=== PATIENT | male | born 1940 | race Caucasian/White ===

== ENCOUNTER 2018-01-11 10:01 | Emergency (ER) | payer MEDICARE, BC ==
[2018-01-11 10:10] VITALS: BP 137/67
--- NOTE | 2018-01-11 11:01 | RAD ---
HISTORY: pain of the left foot, great toe COMPARISONS: None VIEWS: 3, Frontal, lateral, and oblique views FINDINGS: BONE DENSITY: Normal. BONES: There is no displaced fracture. 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 ALIGNMENT: There is no dislocation. SOFT TISSUES: Unremarkable. OTHER FINDINGS: None. IMPRESSION: NO ACUTE OSSEOUS INJURY. IF SYMPTOMS PERSIST, RECOMMEND REPEAT IMAGING.
--- NOTE | 2018-01-11 11:11 | UC ---
Niko Hagan Julia, scribed for Lino Parsons MD on 01/11/18 at 1016 . Lower Extremity/Ankle HPI - HPI Summary HPI Summary: A 77 year old M presents to [facility] with a chief complaint of L great toe pain after kicking a bench today. Pain is 7/10, upon triage. - History of Current Complaint Chief Complaint: UCLowerExtremity Stated Complaint: TOE INJURY Time Seen by Provider: 01/11/18 10:13 Hx Obtained From: Patient Onset/Duration: Sudden Onset, Lasting Hours Pain Intensity: 7 Pain Scale Used: 0-10 Numeric Able to Bear Weight: Yes - Allergies/Home Medications Allergies/Adverse Reactions: Allergies Allergy/AdvReac Type Severity Reaction Status Date / Time Penicillins Allergy unk Verified 01/11/18 10:11 Home Medications: Home Medications Levothyroxine Sodium 75 mcg PO DAILY 01/11/18 [History Confirmed 01/11/18] PMH/Surg Hx/FS Hx/Imm Hx Cardiovascular History: Hypertension - Surgical History Surgical History: Yes Surgery Procedure, Year, and Place: [id number]. [id number]. 1998-STENT- [facility]. 2001-LEFT HIP REPLACEMENT- [facility]. 2008- BACK SURGERY- [facility] - Family History Known Family History: Positive: Hypertension - Social History Alcohol Use: Daily Substance Use Type: None Smoking Status (MU): Former Smoker Review of Systems Constitutional: Negative Musculoskeletal: Myalgia - L great toe pain All Other Systems Reviewed And Are Negative: Yes Physical Exam - Summary Physical Exam Summary: VITAL SIGNS: Reviewed. GENERAL: Patient is a well-developed and nourished male who is lying comfortable in the stretcher. Patient is not in any acute respiratory distress. HEAD AND FACE: Normocephalic EYES: PERRLA, EOMI x 2. EARS: Hearing grossly intact. MOUTH: Oropharynx within normal limits. NECK: Supple, trachea is midline, no adenopathy, no JVD, no carotid bruit. CHEST: Symmetric, no tenderness at palpation LUNGS: Clear to auscultation bilaterally. No wheezing or crackles. CVS: Regular rate and rhythm, S1 and S2 present, no murmurs or gallops appreciated. ABDOMEN: Soft, non-tender. Bowel sounds are normal. No abdominal abnormal pulsations. EXTREMITIES: Full ROM in all major joints, except L great toe. No cyanosis or clubbing. Swollen L great toe with decreased ROM NEURO: Alert and oriented x 3. No acute neurological deficits. Speech is normal and follows commands. SKIN: Dry and warm Triage Information Reviewed: Yes Vital Signs: Initial Vital Signs Temp 97.7 F 01/11/18 10:07 Pulse 64 01/11/18 10:07 Resp 16 01/11/18 10:07 BP 137/67 01/11/18 10:07 Pulse Ox 100 01/11/18 10:07 Vital Signs Reviewed: Yes Diagnostics - Radiology L FOOT XR Radiology Interpretation Completed By: Radiologist - NO ACUTE OSSEOUS INJURY. IF SYMPTOMS PERSIST, RECOMMEND REPEAT IMAGING. Dr. Parsons has reviewed this report. Lower Extremity Course/Dx - Course Course Of Treatment: X-ray impression: No fracture dislocation. Therefore believe that the patient has a this plan. The patient will take ibuprofen for pain. He will follow-up with PCP in the next couple days. - Differential Dx/Diagnosis Provider Diagnoses: Toe pain. musculoskeletal pain Discharge - Sign-Out/Discharge Documenting (check all that apply): Discharge/Admit/Transfer - Discharge Plan Condition: Stable Disposition: HOME Patient Education Materials: Musculoskeletal Pain (ED) Referrals: Nadine Mcdaniel MD [Primary Care Provider] - Additional Instructions: Take medications as instructed Increase your fluid intake Return to the if symptoms worsen - Billing Disposition and Condition Condition: STABLE Disposition: Home The documentation as recorded by the Niko peres Julia accurately reflects the service I personally performed and the decisions made by , Lino Parsons MD.
== END 2018-01-11 11:13 | disposition home or self-care (01) ==
LOC: UCEAST 10:01
DX: M79.675 Pain in left toe(s) (principal); I10 Essential (primary) hypertension; Z88.0 Allergy status to penicillin; Z87.891 Personal history of nicotine dependence
CPT/HCPCS: 99212; G0463

== ENCOUNTER 2018-04-07 10:22 | Emergency (ER) | payer MEDICARE, BC ==
--- NOTE | 2018-04-07 11:43 | ED ---
Lower Extremity - HPI Summary HPI Summary: The pt is a 78 y/o male presenting to the [facility] with a chief complaint of right LE pain. The pt states, as per triage report, that the pain radiates down the right hip/leg. The pt also reports swelling to the right calf as well as swelling on the left leg. The pt denies chest pain and SOB. The pt states that he has not been traveling. Pt denies SOB, N/V, fevers, rashes , sore throat, ear ache, bruises, chills, AARON, chest pain. Pt also reports hip pain that radiated down to the right leg since 4 days ago. The pt is unable to lay down on bed. The patient rates the pain 8/10 in severity. Symptoms aggravated by position. Symptoms alleviated by nothing. Full strength aspirin was taken. - History of Current Complaint Chief Complaint: EDExtremityLower Stated Complaint: LE Pain Hx Obtained From: Patient Onset of Pain: Immediate Onset/Duration: Days - since 04/03/18 Severity Initially: Severe Severity Currently: Severe Pain Intensity: 8 Pain Scale Used: 0-10 Numeric Timing: Constant Associated Signs And Symptoms: Positive: Swelling - both LE with more swelling to the right leg Aggravating Factor(s): Other - Position Alleviating Factor(s): Nothing - Allergies/Home Medications Allergies/Adverse Reactions: Allergies Allergy/AdvReac Type Severity Reaction Status Date / Time Penicillins Allergy Unknown Verified 04/07/18 10:28 Reaction Details PMH/Surg Hx/FS Hx/Imm Hx Cardiovascular History: Reports: Hx Angina - 1998- NOTHING SINCE, Hx Hypertension - ON MEDICATION FOR Musculoskeletal History: Reports: Hx Arthritis - KNUCKLES AND JOINT, Other Musculoskeletal History - HISTORY OF SPINAL STENOSIS- SURERY FOR IN 2008 Sensory History: Reports: Hx Contacts or Glasses - GLASSES Denies: Hx Hearing Aid Opthamlomology History: Reports: Hx Contacts or Glasses - GLASSES - Cancer History Cancer Type, 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 [id number]. 1998-STENT- [facility]. 2001-LEFT HIP REPLACEMENT- [facility]. 2008- BACK SURGERY- [facility] Hx Anesthesia Reactions: No Infectious Disease History: No Infectious Disease History: Denies: History Other Infectious Disease, Traveled Outside the [place] in Last 30 Days - Family History Known Family History: Positive: Hypertension Family History: Reviewed and noncontributory - Social History Alcohol Use: Daily Alcohol Amount: 2 beers Substance Use Type: Reports: None Smoking Status (MU): Former Smoker Review of Systems Negative: Fever, Chills Eyes: Negative Negative: Sore Throat, Ear Ache Negative: Chest Pain Negative: Shortness Of Breath Negative: Vomiting, Nausea Positive: no symptoms reported Musculoskeletal: Other - right LE pain and slightly less left LE pain Positive: Edema - Right LE and Left LE swelling Negative: Rash, Bruising Negative: Headache Psychological: Normal All Other Systems Reviewed And Are Negative: No Physical Exam - Summary Physical Exam Summary: Appearance: Alert, conversive, nontoxic appearing Skin: Warm, dry, no mottling, no rashes, no contusions HEENT: EOMI, PERRL, moist mucous membranes Neck: No masses on the neck, supple Respiratory: Clear to auscultation, breath sounds present, no rales, no rhonchi , no wheezes Cardiovascular: RRR, pulses are symmetrical in both lower and upper extremities Abdomen: Soft, non-tender Bowel Sounds: Present Musculoskeletal: No CVA tenderness, no obvious deformity, Calf minimal fullness to the distal aspect of the right leg Moderately tender to palpation to the right calf Neurological: A&Ox3, CN II-XII Intact, moving all extremities symmetrically Psychiatric: Normal affect and mood Triage Information Reviewed: Yes Vital Signs On Initial Exam: Initial Vitals Temp Pulse Resp BP Pulse Ox 97.4 F 66 18 155/78 98 04/07/18 10:24 04/07/18 10:24 04/07/18 10:24 04/07/18 10:24 04/07/18 10:24 Vital Signs Reviewed: Yes Diagnostics - Vital Signs Vital Signs Temp Pulse Resp BP Pulse Ox 04/07/18 10:24 97.4 F 66 18 155/78 98 - Laboratory Result Diagrams: 04/07/18 12:00 04/07/18 12:00 Lab Statement: Any lab studies that have been ordered have been reviewed, and results considered in the medical decision making process. - Ultrasound No standard instances Ultrasound Interpretation Completed By: Radiologist - US reveals NO RIGHT LOWER EXTREMITY DEEP VEIN THROMBOSIS as per radiologist. The ED Physician has reviewed the radiology report. Lower Extremity Course/Dx - Course Course Of Treatment: The pt is a 78 y.o male with a chief complaint of right lower extremity pain. The pt was received a Venous Dopplar study (US) in the [facility]. Upon evaluation of the radiology report, the pt will be discharged home with a dx of leg pain. He is recommended to have a follow up Venous dopplar study in order to reevaluate the right leg in one week as well as a follow up with his orthopedic surgeon. - Diagnoses Provider Diagnoses: Leg pain Discharge - Sign-Out/Discharge Documenting (check all that apply): Patient Departure - Discharge home - Discharge Plan Condition: Stable Disposition: HOME Patient Education Materials: Leg Pain (ED) Referrals: Nadine Mcdaniel MD [Primary Care Provider] - Additional Instructions: Follow up with your doctor. If you have persistent pain and/or swelling, please return or follow up with your doctor for a repeat ultrasound. Take tylenol for pain. - Attestation Statements Document Initiated by Scribe: Yes Documenting Scribe: Aramis Foreman Provider For Whom Scribe is Documenting (Include Credential): Dr. Babs Hairston Scribe Attestation: Aramis Hagan, scribed for Dr. Babs Hairston on 04/07/18 at 1316.
[2018-04-07 12:11] LABS: Hematocrit 44 % (42-52); Hemoglobin 14.5 g/dl (14.0-18.0); Mean Corpuscular HGB Conc 33 g/dl (31-36); Mean Corpuscular Hemoglobin 29 pg (27-31); Mean Corpuscular Volume 87 fL (80-94); Red Blood Count 5.09 10^6/ul (4.00-5.40); Red Cell Distribution Width 13 % (10.5-15); White Blood Count 7.7 10^3/ul (3.5-10.8)
[2018-04-07 12:25] LABS: EGFR Non-African American 65.3 (>60)
[2018-04-07 12:30] LABS: ABS Basophils 0 10^3/ul (0-0.2); ABS Eosinophils 0.2 10^3/ul (0-0.6); ABS Lymphocytes 1.3 10^3/ul (1.0-4.8); ABS Monocytes 0.5 10^3/ul (0-0.8); ABS Neutrophils 5.7 10^3/ul (1.5-7.7); ABS Nucleated RBC 0 10^3/ul; Lymphocyte % 16.4 % (25-47); Mean Platelet Volume 8.9 um3 (7.4-10.4); Nucleated Red Blood Cells % 0.2; Platelet Count 126 10^3/ul (150-450)
[2018-04-07 12:30] LABS: INR 0.92 (0.77-1.02)
--- NOTE | 2018-04-07 12:53 | RAD ---
HISTORY: pain, right calf COMPARISONS: None relevant TECHNIQUE: Multiple transverse and longitudinal ultrasound images were obtained of the right lower extremity from the level of the common femoral vein inferiorly through to the infrapopliteal veins using grayscale, color Doppler, and spectral Doppler imaging with and without compression and with augmentation. Comparison images were obtained of the contralateral common femoral vein. FINDINGS: VEINS: The venous system of the right lower extremity is compressible throughout its course, with normal flow on color Doppler imaging and normal response to augmentation on spectral Doppler imaging. SOFT TISSUES: Unremarkable. OTHER FINDINGS: None. IMPRESSION: NO RIGHT LOWER EXTREMITY DEEP VEIN THROMBOSIS
[2018-04-07 13:32] VITALS: BP 153/73
== END 2018-04-07 13:31 | disposition home or self-care (01) ==
LOC: ED 10:22
DX: M79.604 Pain in right leg (principal); Z87.891 Personal history of nicotine dependence; R60.0 Localized edema; Z88.0 Allergy status to penicillin
CPT/HCPCS: 36415; 80053; 85025; 85610; 85730; 99282

== ENCOUNTER 2019-04-28 10:31 | Emergency (ER) | payer BC, MEDICARE ==
[2019-04-28 10:56] VITALS: BP 137/68
--- NOTE | 2019-04-28 11:16 | UC ---
Upper Extremity HPI - HPI Summary HPI Summary: Patient is an 79-year-old male presenting with right elbow pain and redness 4 days. States he noticed it was worse this morning on the shower when he was unable to wash his hair without increasing pain. He notes sharp pain that is worse with flexion and extension at the elbow. The pain shoots down his arm with certain movements. Also notes swelling of the elbow. Patient denies injury or trauma to the elbow. He denies fever, chills, nausea, vomiting. He notes history of arthritis but says this is different. - History of Current Complaint Chief Complaint: UCUpperExtremity Stated Complaint: ELBOW PAIN AND SWELLING Hx Obtained From: Patient Severity Initially: Mild Severity Currently: Moderate Pain Intensity: 4 Pain Scale Used: 0-10 Numeric - Allergies/Home Medications Allergies/Adverse Reactions: Allergies Allergy/AdvReac Type Severity Reaction Status Date / Time Penicillins Allergy Unknown Verified 04/28/19 10:56 Reaction Details Home Medications: Home Medications Metoprolol Succinate XL TAB* [Toprol XL TAB*] 50 mg PO DAILY 04/28/19 [History Confirmed 04/28/19] Statin Medicat 04/28/19 [History] PMH/Surg Hx/FS Hx/Imm Hx Endocrine History: Thyroid Disease Cardiovascular History: Hypertension - Surgical History Surgical History: Yes Surgery Procedure, Year, and Place: [id number] right. 1998-ANGIOPLASTY- [facility]. 1998-STENT- [facility]. 2001-LEFT HIP REPLACEMENT- [facility]. 2008- BACK SURGERY- [facility] - Family History Known Family History: Positive: Hypertension Family History: Reviewed and noncontributory - Social History Alcohol Use: Daily Alcohol Amount: 2 beers Substance Use Type: None Smoking Status (MU): Former Smoker When Did the Patient Quit Smoking/Using Tobacco: 40 years ago Review of Systems All Other Systems Reviewed And Are Negative: Yes Constitutional: Positive: Negative. Negative: Fever, Chills Skin: Positive: Other - erythema of right elbow. Negative: Bruising ENT: Positive: Negative Respiratory: Positive: Negative. Negative: Shortness Of Breath, Cough Cardiovascular: Positive: Negative. Negative: Palpitations, Chest Pain Gastrointestinal: Positive: Negative. Negative: Abdominal Pain, Vomiting, Nausea Neurovascular: Negative: Decreased Sensation Musculoskeletal: Positive: Arthralgia, Decreased ROM, Edema. Negative: Myalgia Neurological: Negative: Weakness, Paresthesia, Numbness Physical Exam Triage Information Reviewed: Yes Appearance: Well-Appearing, No Pain Distress, Well-Nourished Vital Signs: Initial Vital Signs Temp 98 F 04/28/19 10:52 Pulse 67 04/28/19 10:52 Resp 16 04/28/19 10:52 BP 137/68 04/28/19 10:52 Pulse Ox 98 04/28/19 10:52 Vital Signs Reviewed: Yes Eyes: Positive: Conjunctiva Clear ENT: Positive: Hearing grossly normal Neck: Positive: Supple Respiratory Exam: Normal Respiratory: Positive: Lungs clear, Normal breath sounds, No respiratory distress Cardiovascular Exam: Normal Cardiovascular: Positive: RRR, Pulses Normal, Brisk Capillary Refill. Negative : Distal Pulses Weak, Distal Pulses Absent, Delayed Capillary Refill Musculoskeletal: Positive: Strength Intact, ROM Limited @ - elbow flexion and extension, Edema @ - right olecranon and posterior arm Neurological: Positive: Alert Psychological: Positive: Age Appropriate Behavior Skin: Positive: Other - erythema and warmth noted of right posterior elbow and arm Upper Extremity Course/Dx - Course Course Of Treatment: Discussed concern for cellulitis vs bursitis with the patient. I am treating for cellulitis with Keflex. Patient states he believes he has taken this before and tolerated it well. I stressed the importance of the patient going to the emergency room if he does not improve within 2 days. Also directed him to go if he experiences fever, chills, nausea, vomiting, or worsening symptoms at any point in time. Patient voiced understanding and agreed to treatment plan. Discussed patient with Dr. Parsons who agreed to the treatment plan. - Differential Dx/Diagnosis Provider Diagnosis: Cellulitis of right elbow Discharge ED - Sign-Out/Discharge Documenting (check all that apply): Patient Departure All imaging exams completed and their final reports reviewed: No Studies - Discharge Plan Condition: Stable Disposition: HOME Prescriptions: Cephalexin CAP* [Keflex CAP*] 500 mg PO TID #21 cap Patient Education Materials: Cellulitis (ED) Referrals: Nadine Mcdaniel MD [Primary Care Provider] - If Needed Additional Instructions: Take Keflex as prescribed for the treatment of your cellulitis. You may also take ibuprofen and/or tylenol as directed for pain relief. You may also apply warm compresses to the area twice daily to help relieve pain. GO TO THE EMERGENCY ROOM IF: - you do not have improvement within the next 2 days - you experience worsening redness, swelling, or pain - you experience drainage or bleeding from the area - you experience fever, chills, nausea, or vomiting - Billing Disposition and Condition Condition: STABLE Disposition: Home
== END 2019-04-28 11:51 | disposition home or self-care (01) ==
LOC: UCEAST 10:31
DX: L03.113 Cellulitis of right upper limb (principal); I10 Essential (primary) hypertension; Z87.891 Personal history of nicotine dependence; Z88.0 Allergy status to penicillin
CPT/HCPCS: 99212; G0463

== ENCOUNTER 2019-05-05 12:18 | Emergency (ER) | payer MEDICARE ==
[2019-05-05 13:07] VITALS: BP 136/62
--- NOTE | 2019-05-05 13:29 | UC ---
Skin Complaint HPI - HPI Summary HPI Summary: 79-year-old male presents with onset of right wrist pain last not that has progressively worsened. States this morning when he woke up he noted some redness and swelling to the ulnar wrist. Describes pain as a mild aching. Pain worsens with movement. He was evaluated for right elbow pain and redness 1 week ago and was treated for a possible cellulitis with a 7-day course of cephalexin which he took the last dose today. Denies fever, chills, injury, numbness, or tingling. - History of Current Complaint Chief Complaint: UCSkin Time Seen by Provider: 05/05/19 13:12 Stated Complaint: SWOLLEN HAND AND ELBOW Hx Obtained From: Patient Pain Intensity: 4 - Allergy/Home Medications Allergies/Adverse Reactions: Allergies Allergy/AdvReac Type Severity Reaction Status Date / Time Penicillins Allergy Unknown Verified 05/05/19 13:02 Reaction Details Home Medications: Home Medications Acetaminophen [Non-Aspirin Extra Strength] 1,000 mg PO ONCE PRN 05/05/19 [ History Confirmed 05/05/19] Atorvastatin* [Lipitor 10 MG*] 1 tab PO DAILY 05/05/19 [History Confirmed ] PMH/Surg Hx/FS Hx/Imm Hx Endocrine History: Thyroid Disease, Dyslipidemia Cardiovascular History: Cardiac Disease, Hypertension - Surgical History Surgical History: Yes Surgery Procedure, Year, and Place: [id number] right. 1998-ANGIOPLASTY- [facility]. 1998-STENT- [facility]. 2001-LEFT HIP REPLACEMENT- [facility]. 2008- BACK SURGERY- [facility] - Family History Known Family History: Positive: Hypertension - Social History Occupation: Retired Lives: With Family Alcohol Use: Daily Alcohol Amount: 2 beers Substance Use Type: None Smoking Status (MU): Former Smoker When Did the Patient Quit Smoking/Using Tobacco: 40 years ago Review of Systems All Other Systems Reviewed And Are Negative: Yes Constitutional: Negative: Fever, Chills Skin: Positive: Other - Erythema. Negative: Rash Respiratory: Positive: Negative Cardiovascular: Positive: Negative Gastrointestinal: Positive: Negative Genitourinary: Positive: Negative Motor: Negative: Weakness Neurovascular: Negative: Decreased Sensation Musculoskeletal: Positive: Arthralgia - See HPI Neurological: Positive: Negative Is Patient Immunocompromised?: No Physical Exam - Summary Physical Exam Summary: GENERAL APPEARANCE: Well developed, well nourished, alert and cooperative, and appears to be in no acute distress. CARDIAC: Normal S1 and S2. No S3, S4 or murmurs. Rhythm is regular. There is no peripheral edema, cyanosis or pallor. Extremities are warm and well perfused. Capillary refill is less than 2 seconds. Peripheral pulses intact. LUNGS: Clear to auscultation without rales, rhonchi, wheezing or diminished breath sounds. ABDOMEN: Positive bowel sounds. Soft, nondistended, nontender. No guarding or rebound. No masses or hepatosplenomegally. MUSKULOSKELETAL: Normal muscular development. Normal gait. EXTREMITIES: Area of non-tender erythema approximately 5 cm x 3 cm to the ulnar right wrist with mild increased warmth. No induration or fluctuance. Wrist joint mildly tender. Full ROM however reports pain with movement. Circulation and sensation intact. SKIN: Over all skin normal color, texture and turgor. Triage Information Reviewed: Yes Vital Signs: Initial Vital Signs Temp 97.5 F 05/05/19 12:59 Pulse 53 05/05/19 12:59 Resp 18 05/05/19 12:59 BP 136/62 05/05/19 12:59 Pulse Ox 98 05/05/19 12:59 Vital Signs Reviewed: Yes Course/Dx - Course Course Of Treatment: 79-year-old male presents with onset of right wrist pain last not that has progressively worsened. States this morning when he woke up he noted some redness and swelling to the ulnar wrist. Describes pain as a mild aching. Pain worsens with movement. He was evaluated for right elbow pain and redness 1 week ago and was treated for a possible cellulitis with a 7-day course of cephalexin which he took the last dose today. Denies fever, chills, injury, numbness, or tingling. Afebrile. VSS. Patient had an area of non-tender erythema approximately 5 cm x 3 cm to the ulnar right wrist with mild increased warmth. No lesions, induration or fluctuance noted. Wrist joint mildly tender. Full ROM however reports pain with movement. Circulation and sensation intact. Remainder of exam was unremarkable. I discussed with the patient that I suspect this may be some localized inflammation secondary to arthritis especially considering he just completed antibiotics, was afebrile, and generally looked well however I could not completely rule out the possibility of cellulitis. We discussed his treatment options including ED evaluation vs symptomatic treatment for an inflammatory response and reviewed the risks and benefits of each. He is electing for the latter at this time. He was placed in a cock-up wrist splint by the RN. Recommending OTC analgesics and RICE. He is to follow up with his PCP in 2 days if no improvement. Reviewed anticipatory guidance and warning symptoms with the patient and recommended he have a low threshold for ED evaluation if symptoms worsen. Verbalizes understanding and agrees with POC. - Differential Diagnoses - Skin Complaint Differential Diagnoses: Abscess, Cellulitis, Contact Dermatitis, MRSA, Varicella Zoster - Diagnoses Provider Diagnosis: Arthritis of right wrist, Inflammatory arthritis Discharge ED - Sign-Out/Discharge Documenting (check all that apply): Patient Departure All imaging exams completed and their final reports reviewed: No Studies - Discharge Plan Condition: Stable Disposition: HOME Patient Education Materials: Arthritis (ED) Referrals: Krystian Nagy MD [Primary Care Provider] - 2 Days (If no improvement) Additional Instructions: I suspect that the pain and inflammation you are experiencing is an inflammatory process likely related to some arthritis. I cannot fully rule out an infectious process such as cellulitis however with you having no fever and appear well otherwise we will treat this conservatively and without any further antibiotics. Rest the the wrist as much as possible. Wear the splint that was applied in the clinic until you are pain free. Apply ice to the affected area for 15-20 minutes at least 4 times a day to help with the pain and swelling. Elevate the arm to help reduce swelling. Take acetaminophen (Tylenol) or ibuprofen (Advil, Motrin) according to directions as needed for pain. Follow up with your primary care provider in 2 days if symptoms do not improve. Seek immediate medical attention in the emergency room if you develop fever greater than 100.5 F, the redness continues to spread, you have severe pain not managed with pain medication, you lose function of the wrist or arm, develop numbness or tingling in the arm, hand, or fingers, or have any worsening of symptoms. - Billing Disposition and Condition Condition: STABLE Disposition: Home
== END 2019-05-05 14:10 | disposition home or self-care (01) ==
LOC: UCEAST 12:18
DX: M13.831 Other specified arthritis, right wrist (principal); E78.5 Hyperlipidemia, unspecified; Z88.0 Allergy status to penicillin; Z79.899 Other long term (current) drug therapy; Z87.891 Personal history of nicotine dependence
CPT/HCPCS: 99212; G0463

== ENCOUNTER 2020-09-10 00:03 | Inpatient (IN) ==
[2020-09-10] MEDS ORDERED: fentaNYL 100 mcg/2 ml 50 MCG/ML VIAL IV SLOW PU ONE (01:35)
[2020-09-10] MEDS ORDERED: NS 0.9% 1000 ml BAG 1,000 ML IV ONE (02:03)
[2020-09-10] MEDS ORDERED: Ondansetron 4 mg VIAL 2 MG/ML 2 ml VIAL ONE (02:38)
[2020-09-10] MEDS ORDERED: Ondansetron 4 mg VIAL 2 MG/ML 2 ml VIAL IV ONE (02:42)
[2020-09-10 02:45] LABS: ABS Eosinophils 0.2 10^3/ul (0-0.6); ABS Lymphocytes 1.8 10^3/ul (1.0-4.8); ABS Monocytes 0.4 10^3/ul (0-0.8); ABS Neutrophils 5.4 10^3/ul (1.5-7.7); Eosinophil % 2.3 %; Hematocrit 41 % (42-52); Lymphocyte % 23.1 %; Mean Corpuscular HGB Conc 35 g/dL (31-36); Mean Corpuscular Hemoglobin 29 pg (27-31); Mean Corpuscular Volume 85 fL (80-94); Mean Platelet Volume 8.9 fL (7.4-10.4); Platelet Count 137 10^3/uL (150-450); Red Blood Count 4.75 10^6 /uL (4.18-5.48); Red Cell Distribution Width 14 % (10-15); White Blood Count 7.9 10^3/uL (3.5-10.8)
[2020-09-10 02:49] LABS: Urine Appearance Clear; Urine Bilirubin Negative (Negative); Urine Blood Negative (Negative); Urine Color Straw; Urine Glucose Negative (Negative); Urine Ketones Negative (Negative); Urine Nitrite Negative (Negative); Urine Protein Negative (Negative); Urine Specific Gravity 1.006 (1.010-1.030); Urine Urobilinogen Negative (Negative)
[2020-09-10 03:02] LABS: Albumin/Globulin Ratio 1.5 (1-3); BUN/Creatinine Ratio 15.9 (8-20); Calcium 8.8 mg/dL (8.6-10.3); EGFR African American 75.4 (>60); EGFR Non-African American 62.3 (>60); Globulin 2.6 g/dL (2-4); Potassium 3.8 mmol/L (3.5-5.0); Total Bilirubin 0.5 mg/dL (0.2-1.0); Total Protein 6.6 g/dL (6.4-8.9)
[2020-09-10 03:04] LABS: Troponin I 0.01 ng/mL (<0.03)
[2020-09-10] MEDS ORDERED: Ondansetron 4 mg VIAL 2 MG/ML 2 ml VIAL IV PRN (03:41)
[2020-09-10] MEDS: NS 0.9% 1000 ml BAG 1,000 ML IV SCH ×2 (05:29→18:17)
[2020-09-10] MEDS: Heparin 5000 UNITS/ML 1 mL VIAL SUBCUT SCH ×3 (05:29→20:59)
[2020-09-10] MEDS ORDERED: HYDROmorphone 1 MG/1 ML SYRINGE IV SLOW PU ONE (09:20)
[2020-09-10 09:28] LABS: Activated Partial Thrombo Time 18.9 seconds (26.0-38.0); INR 0.91 (0.82-1.09)
[2020-09-10 09:36] LABS: BUN/Creatinine Ratio 13.3 (8-20); Blood Urea Nitrogen 15 mg/dL (6-24); CO2 Carbon Dioxide 25 mmol/L (22-32); Calcium 8.9 mg/dL (8.6-10.3); Chloride 106 mmol/L (101-111); EGFR African American 75.4 (>60); EGFR Non-African American 62.3 (>60); Glucose 93 mg/dL (70-100); Sodium 138 mmol/L (135-145)
[2020-09-10 09:39] LABS: Troponin I 0.01 ng/mL (<0.03)
[2020-09-10 10:13] LABS: Anion Gap 7 mmol/L (2-11)
[2020-09-10] MEDS ORDERED: Regadenoson 0.4 MG/5 ML SYRINGE ONE (13:13)
[2020-09-10 15:22] LABS: ABS Eosinophils 0.1 10^3/ul (0-0.6); ABS Lymphocytes 0.8 10^3/ul (1.0-4.8); ABS Monocytes 0.4 10^3/ul (0-0.8); ABS Neutrophils 6.9 10^3/ul (1.5-7.7); Hematocrit 41 % (42-52); Hemoglobin 13.5 g/dL (14.0-18.0); Lymphocyte % 10.1 %; Mean Corpuscular HGB Conc 33 g/dL (31-36); Mean Corpuscular Hemoglobin 29 pg (27-31); Mean Corpuscular Volume 87 fL (80-94); Mean Platelet Volume 9.1 fL (7.4-10.4); Platelet Count 109 10^3/uL (150-450); Red Blood Count 4.65 10^6 /uL (4.18-5.48); Red Cell Distribution Width 14 % (10-15); White Blood Count 8.3 10^3/uL (3.5-10.8)
[2020-09-10 15:42] LABS: Troponin I 0.01 ng/mL (<0.03)
[2020-09-10 16:00] LABS: TSH Ultra Thyroid Stim Horm 2.99 mcIU/mL (0.34-5.60)
[2020-09-10 16:05] LABS: Potassium Redraw 4.5 mmol/L (3.5-5.0)
[2020-09-11] MEDS ORDERED: Morphine 2 MG/ML SYRINGE IV ONE ×2 (02:17→06:50)
[2020-09-11 06:40] LABS: Hematocrit 36 % (42-52); Hemoglobin 12.4 g/dL (14.0-18.0); Mean Corpuscular HGB Conc 35 g/dL (31-36); Mean Corpuscular Hemoglobin 30 pg (27-31); Mean Corpuscular Volume 86 fL (80-94); Red Blood Count 4.17 10^6 /uL (4.18-5.48); Red Cell Distribution Width 14 % (10-15); White Blood Count 6.1 10^3/uL (3.5-10.8)
[2020-09-11 06:41] LABS: ABS Eosinophils 0.1 10^3/ul (0-0.6); ABS Monocytes 0.5 10^3/ul (0-0.8); ABS Neutrophils 4.4 10^3/ul (1.5-7.7); Eosinophil % 2.4 %; Lymphocyte % 16.2 %; Nucleated Red Blood Cells % 0.1
[2020-09-11 06:52] LABS: BUN/Creatinine Ratio 14.3 (8-20); Calcium 8.2 mg/dL (8.6-10.3); EGFR African American 76.1 (>60); EGFR Non-African American 62.9 (>60); Magnesium 1.8 mg/dL (1.9-2.7); Potassium 4.3 mmol/L (3.5-5.0)
[2020-09-11] MEDS ORDERED: Magnesium Sulfate 2 gm BAG 2 GM/50 ML BAG IVPB ONE (07:34)
[2020-09-11 08:20] LABS: Mean Platelet Volume 8.7 fL (7.4-10.4); Platelet Count 85 10^3/uL (150-450)
[2020-09-11] MEDS ORDERED: Ondansetron 4 mg VIAL 2 MG/ML 2 ml VIAL IV PRN (10:17)
[2020-09-11] MEDS ORDERED: HYDROmorphone 1 MG/1 ML SYRINGE IV PRN (10:17)
[2020-09-11] MEDS ORDERED: fentaNYL 100 mcg/2 ml 50 MCG/ML VIAL IV PRN (10:17)
[2020-09-11] MEDS ORDERED: Naloxone 0.4 mg VIAL 0.4 mg/ml 1 ml VIAL IV PRN (10:17)
[2020-09-11] MEDS ORDERED: Rocuronium 50 mg VIAL 10 mg/ml 5 ml VIAL (50 mg) ONE (10:30)
[2020-09-11] MEDS ORDERED: fentaNYL 100 mcg/2 ml 50 MCG/ML VIAL ONE (10:31)
[2020-09-11] MEDS ORDERED: Propofol 10 MG/ML 20 ML BTL ONE (10:31)
[2020-09-11] MEDS ORDERED: ROPIVACAINE 5 MG/ML 30 ML BTL (0.5%) ONE (10:40)
[2020-09-11] MEDS ORDERED: Lidocaine 2% PF 5 ML VIAL ONE (10:40)
[2020-09-11] MEDS ORDERED: Phenylephrine 40 mcg/mL 10mL (400mcg) SYRINGE ONE (10:50)
[2020-09-11] MEDS ORDERED: ceFAZolin VIAL VIAL ONE (10:53)
[2020-09-11] MEDS ORDERED: Vancomycin 1,250 MG IV x ONCE IVPB ONE (11:00)
[2020-09-11] MEDS ORDERED: Ondansetron 4 mg VIAL 2 MG/ML 2 ml VIAL ONE (11:19)
[2020-09-12] MEDS: oxyCODONE/Acetamin 5/325 mg TAB PO PRN ×2 (01:59→15:28)
[2020-09-12 08:34] LABS: ABS Eosinophils 0.1 10^3/ul (0-0.6); ABS Lymphocytes 0.9 10^3/ul (1.0-4.8); ABS Monocytes 0.7 10^3/ul (0-0.8); ABS Neutrophils 4.5 10^3/ul (1.5-7.7); Eosinophil % 1.2 %; Hematocrit 39 % (42-52); Hemoglobin 13.2 g/dL (14.0-18.0); Lymphocyte % 14.4 %; Mean Corpuscular HGB Conc 34 g/dL (31-36); Mean Corpuscular Hemoglobin 29 pg (27-31); Mean Corpuscular Volume 87 fL (80-94); Mean Platelet Volume 9.3 fL (7.4-10.4); Nucleated Red Blood Cells % 0.1; Platelet Count 93 10^3/uL (150-450); Red Blood Count 4.49 10^6 /uL (4.18-5.48); Red Cell Distribution Width 14 % (10-15); White Blood Count 6.2 10^3/uL (3.5-10.8)
[2020-09-12 08:42] LABS: BUN/Creatinine Ratio 12.7 (8-20); Calcium 8.6 mg/dL (8.6-10.3); EGFR African American 66.5 (>60); EGFR Non-African American 54.9 (>60); Potassium 4.3 mmol/L (3.5-5.0)
[2020-09-13 05:34] LABS: ABS Eosinophils 0.1 10^3/ul (0-0.6); ABS Lymphocytes 1.2 10^3/ul (1.0-4.8); ABS Monocytes 0.7 10^3/ul (0-0.8); ABS Neutrophils 4.6 10^3/ul (1.5-7.7); Eosinophil % 1.7 %; Hematocrit 34 % (42-52); Hemoglobin 11.7 g/dL (14.0-18.0); Lymphocyte % 17.8 %; Mean Corpuscular HGB Conc 34 g/dL (31-36); Mean Corpuscular Hemoglobin 29 pg (27-31); Mean Corpuscular Volume 86 fL (80-94); Mean Platelet Volume 8.8 fL (7.4-10.4); Platelet Count 98 10^3/uL (150-450); Red Cell Distribution Width 14 % (10-15); White Blood Count 6.6 10^3/uL (3.5-10.8)
[2020-09-13 05:48] LABS: BUN/Creatinine Ratio 11.4 (8-20); Calcium 8.3 mg/dL (8.6-10.3); EGFR Non-African American 52.1 (>60); Magnesium 1.9 mg/dL (1.9-2.7); Potassium 4.1 mmol/L (3.5-5.0)
[2020-09-14 06:18] LABS: BUN/Creatinine Ratio 11.8 (8-20); Calcium 8.7 mg/dL (8.6-10.3); EGFR Non-African American 58.7 (>60); Potassium 4.1 mmol/L (3.5-5.0)
[2020-09-14 08:01] VITALS: BP 108/88
== END 2020-09-14 10:01 | DRG 493 ==
LOC: ED 00:03 → MEDTELE 03:34
PROVIDERS: ADMIT Internal Medicine; ATTEND Internal Medicine

== ENCOUNTER 2020-09-14 08:38 | Inpatient (IN) ==
[2020-09-14] MEDS ORDERED: Magnesium Hydroxide LIQ 30 ML UDC PO PRN (10:51)
[2020-09-14] MEDS ORDERED: Senna TAB 8.6 mg TAB PO PRN (10:51)
[2020-09-14] MEDS ORDERED: oxyCODONE/Acetamin 5/325 mg TAB PO PRN (10:59)
[2020-09-14] MEDS: Heparin 5000 UNITS/ML 1 mL VIAL SUBCUT SCH (20:22)
[2020-09-15 06:21] LABS: ABS Eosinophils 0.2 10^3/ul (0-0.6); ABS Lymphocytes 1.1 10^3/ul (1.0-4.8); ABS Monocytes 0.6 10^3/ul (0-0.8); ABS Neutrophils 4.1 10^3/ul (1.5-7.7); Eosinophil % 3.2 %; Hematocrit 33 % (42-52); Hemoglobin 11.2 g/dL (14.0-18.0); Mean Corpuscular HGB Conc 34 g/dL (31-36); Mean Corpuscular Hemoglobin 29 pg (27-31); Mean Corpuscular Volume 86 fL (80-94); Mean Platelet Volume 8.6 fL (7.4-10.4); Platelet Count 158 10^3/uL (150-450); Red Blood Count 3.83 10^6 /uL (4.18-5.48); Red Cell Distribution Width 14 % (10-15); White Blood Count 6.1 10^3/uL (3.5-10.8)
[2020-09-15 06:46] LABS: Albumin 3.1 g/dL (3.2-5.2); Albumin/Globulin Ratio 1.1 (1-3); BUN/Creatinine Ratio 14.7 (8-20); Calcium 8.5 mg/dL (8.6-10.3); EGFR African American 64.7 (>60); EGFR Non-African American 53.5 (>60); Globulin 2.9 g/dL (2-4); Potassium 4.4 mmol/L (3.5-5.0); Total Bilirubin 0.6 mg/dL (0.2-1.0)
[2020-09-15] MEDS: Aspirin EC 81 mg TAB.EC (enteric coated) PO SCH (08:42)
[2020-09-15] MEDS: Heparin 5000 UNITS/ML 1 mL VIAL SUBCUT SCH ×2 (08:43→20:09)
[2020-09-15] MEDS: oxyCODONE/Acetamin 5/325 mg TAB PO PRN (09:30)
[2020-09-16] MEDS: Aspirin EC 81 mg TAB.EC (enteric coated) PO SCH (08:42)
[2020-09-16] MEDS: Heparin 5000 UNITS/ML 1 mL VIAL SUBCUT SCH ×2 (08:46→20:52)
[2020-09-16] MEDS: oxyCODONE/Acetamin 5/325 mg TAB PO PRN (10:16)
[2020-09-17 05:52] VITALS: BP 109/52
[2020-09-17] MEDS: Aspirin EC 81 mg TAB.EC (enteric coated) PO SCH (10:58)
[2020-09-17] MEDS: Heparin 5000 UNITS/ML 1 mL VIAL SUBCUT SCH (10:58)
== END 2020-09-17 15:39 | disposition home health service (06) | DRG 561 ==
LOC: PMRU 10:34
PROVIDERS: ADMIT Physical Medicine & Rehabilitation; ATTEND Physical Medicine & Rehabilitation